=== PATIENT | male | born 1960 | race Caucasian/White ===

== ENCOUNTER 2024-05-13 12:38 | Outpatient (CLI) | payer MEDICARE | END 2024-05-13 23:59 | disposition home or self-care (01) | LOC: RAD 12:38 | PROVIDERS: ATTEND Registered Nurse | DX: M18.11 Unilateral primary osteoarthritis of first carpometacarpal joint, right hand (principal); R20.0 Anesthesia of skin | CPT/HCPCS: 73100; 73120 ==